=== PATIENT | female | born 1985 | race Caucasian/White ===

== ENCOUNTER 2019-02-02 17:01 | Inpatient (IN) ==
[2019-02-02] MEDS ORDERED: Metoclopramide 10 MG/2 ML VIAL IVP ONE (17:47)
[2019-02-02] MEDS ORDERED: SODIUM CHLORIDE 0.9% IVPB ONE (17:47)
[2019-02-02] MEDS ORDERED: Famotidine 20 MG/2 ML VIAL IVP ONE (17:47)
[2019-02-02] MEDS ORDERED: GENTAMICIN IVPB ONE (17:47)
[2019-02-02] MEDS ORDERED: Clindamycin 900 MG/50 ML 900 MG/50 ML IV.SOLN IVPB ONE (17:47)
[2019-02-02] MEDS ORDERED: Ringers Solution, Lactated 1,000 ML ONE ×2 (17:53→18:51)
--- NOTE | 2019-02-02 17:55 | OB/GYN History & Physical ---
Date of Encounter: 02/02/19 Time of Encounter: 17:55 Assessment and Plan (1) Breech presentation on examination Current visit: Yes Status: Acute Plan for primary low transverse section. Preop antibiotics of clindamycin and gentamicin. Discussed risks, benefits and alternatives to a primary low transverse section for breech presentation of baby A. Questions were answered and consent was signed. Qualifiers: Fetus number: fetus 1 of multiple gestation Qualified Code(s): O32.1XX1 - Maternal care for breech presentation, fetus 1 (2) Dichorionic diamniotic twin in third trimester Current visit: Yes Status: Acute (3) 34 weeks gestation of Current visit: Yes Status: Acute Continuous monitoring and toco. (4) Pre-eclampsia in third trimester Current visit: Yes Status: Acute Monitor blood pressure. Repeat preeclampsia labs. (5) BMI 50.0-59.9, adult Current visit: Yes Status: Chronic History of Present Illness Chief complaint: SROM HPI: Ms. Delgadillo is a 33 year old female 34+2 weeks gestation (by LMP of 06/07/18) who presents to triage with complaints of rupture membranes at 1530. She states that she has been leaking clear/yellow fluid since that time. Patient reports feeling movement and contractions approximately every 3 minutes. care at [facility] by Dr. Becerra. with DI/DI twins, 15% discordant growth noted on last ultrasound in the [facility], 01/25/2016. At last visit was diagnosed with preeclampsia without severe features. She states she underwent an ultrasound in [place], by [facility], on 01/29/2019. This [facility] ultrasound showed that baby A was breech and weighed 4 lbs. 11 oz. while baby B was vertex weighing 3 lbs. 13 oz. She denies vaginal bleeding, abnormal vaginal discharge, dysuria, headache, vision changes, right upper quadrant/epigastric pain, new onset chest pain or shortness of breath or any other obstetrical complaints. 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 First day of last period was 06/07/2018. History of 1 abnormal Pap smear in 2004. This was followed with colposcopy and negative biopsies. She denies a history of STI's. Medications and Allergies Allergy/AdvReac Type Severity Reaction Status Date / Time No Known Allergies Allergy Verified 02/02/19 18:22 Review of System OB All systems PM: reviewed and no additional remarkable complaints except as stated (All other systems are negative outside of the history of present illness.) Exam - Constitutional Constitutional: no acute distress, morbidly obese - HEENT HEENT: Normocephaly, Mucus Membranes Moist - Neck Neck exam: supple - Lungs Respiratory exam: CTAB - Cardiovascular Cardiovascular exam: RRR - Abdomen Abdomen: Present: bowel sounds normal, gravid, non tender (Protuberant) - Extremities Extremities exam: normal inspection - Vagina Vagina: Present: normal moisture (speculum exam with pooling noted, clear fluid. Foot noted in vagina on cervical exam ) - Uterus Uterus exam: Present: enlarged Results Result Diagrams: 02/02/19 17:47 All other labs normal. - VTE Reasons for not Prescribing Prophylaxis: Treatment not Indicated - Low risk for VTE
[2019-02-02] MEDS ORDERED: Ringers Solution, Lactated 1,000 ML IVC SCH (18:00)
[2019-02-02] MEDS ORDERED: *HR* Propofol 200 MG/20 ML VIAL IVP ONE ×2 (18:00→18:01)
[2019-02-02] MEDS ORDERED: Metoclopramide 10 MG/2 ML VIAL IVP STA (18:02)
[2019-02-02] MEDS ORDERED: *HR* Succinylcholine 200 MG/10 ML VIAL IVP ONE (18:02)
[2019-02-02] MEDS ORDERED: Acetaminophen IV 1,000 MG/100 ML INFUS..BTL IVPB STA (18:03)
[2019-02-02] MEDS ORDERED: Famotidine 20 MG/2 ML VIAL IVP STA (18:03)
[2019-02-02] MEDS ORDERED: *HR* Oxytocin 10 UNIT/ML VIAL IM ONE ×2 (18:04→18:51)
[2019-02-02] MEDS ORDERED: Dexamethasone 4 MG/ML VIAL ONE (18:25)
[2019-02-02] MEDS ORDERED: Ondansetron 4 MG/2 ML VIAL ONE (18:25)
[2019-02-02] MEDS ORDERED: *HR* Meperidine 25 MG/ML SYRINGE IVP PRN (18:33)
[2019-02-02] MEDS ORDERED: *HR* HYDROmorphone (PF) 1 MG/ML SYRINGE IVP PRN ×2 (18:33→22:03)
[2019-02-02] MEDS ORDERED: Ondansetron 4 MG/2 ML VIAL IVP PRN ×2 (18:33→22:03)
[2019-02-02 18:40] LABS: Basophils % 0.2 %; Eosinophils # 0.1 K/mcL (0.0-0.6); Eosinophils % 1.7 %; Hematocrit 36.3 % (35.3-44.9); Hemoglobin 12.5 g/dL (11.5-15.4); Immature Granulocytes % 0.4 % (0-4); Lymphocytes # 1.1 K/mcL (0.6-4.6); Lymphocytes % 13.2 %; Mean Corpuscular HGB Conc 34.4 g/dL (31.6-35.5); Mean Corpuscular Hemoglobin 28.9 pg (28.0-33.3); Mean Platelet Volume 11.1 fL (9.4-12.4); Monocytes # 0.6 K/mcL (0.0-1.3); Monocytes % 6.9 %; Neutrophils # 6.5 K/mcL (1.6-8.9); Platelet Count 174 K/mcL (140-400); Red Blood Count 4.32 M/mcL (3.82-4.97); Red Cell Distribution Width 14.1 % (11.5-14.5); Segmented Neutrophils % 77.6 %; White Blood Count 8.4 K/mcL (4.3-11.1)
--- NOTE | 2019-02-02 18:41 | Anesthesia Evaluation PreOp ---
Date of Encounter: 02/02/19 Time of Encounter: 17:55 - Past History Planned Operation: c section, stat Cardiac History: Denies any Significant Hx Pulmonary History: Denies Any Significant HX SOIL TECHNICIAN History: Denies Any Significant HX Other Medical History: GERD Anesthesia History: No Prior Anesthetic Complications, Past Anesthesia (sinus) : Yes Test: Positive Alcohol Use: none Drug use: none Medications and Allergies Allergy/AdvReac Type Severity Reaction Status Date / Time No Known Allergies Allergy Verified 02/02/19 18:22 - Meds/Allergy Pre-op Review Medications Reviewed: Yes Allergies Reviewed: Yes Beta Blockers on Current Med List: No Anesthesia Exam 170 80 74 16 fht 132,143 Height: 5'3" Weight: 141 k NPO (# of Hours): 5 Pain Scale: 2 Pain Scale Used: Numeric (1 - 10) - HEENT Pupil (Motor): Pupils equal Mallampati: II Teeth: Normal Oral Opening: Greater than 3 - SOIL TECHNICIAN LOC: Oriented SOIL TECHNICIAN Motor: Normal RUE, Normal LUE, Normal RLE, Normal LLE, Normal Face SOIL TECHNICIAN Sensory: Normal: RUE, LUE, RLE, LLE, Face - Cardiac Rhythm: Regular Murmur: None - Pulmonary Breath Sounds: bilateral Clear Respiratory Effort: Symmetrical Anesthesia Assess/Plan ASA Score: 3 (MO, BMI 55) Level of consciousness: Cooperative, Anxious Anesthetic Plan: General (risks discussed, questions answered, verbal consent) Autologous Blood: No Monitoring Plan: Standard Monitors Recovery Plan: PACU
[2019-02-02] MEDS ORDERED: *HR* FentaNYL (PF) 100 MCG/2 ML VIAL ONE (18:43)
[2019-02-02] MEDS ORDERED: *HR* HYDROMORPHONE 2 MG/ML VIAL ONE (18:50)
--- NOTE | 2019-02-02 20:23 | OB/GYN Procedure Note ---
Section - Date of procedure: 02/02/19 Preop diagnosis: breech (Baby A), other (1. IUP @ 34.2wga 2. Breech of Twin A 3. Di-Di Twins 4. Pre-eclampsia w/ Severe Features) Post-op diagnosis: same Procedure: section, primary low transverse Surgeon: Barbie Cardoza Blood Loss: 800 Was there an syrup mixer assistant present: Yes Tentmaker: Sherman Joe Anesthesia Type: General Disposition: L&D Recovery Room Specimens: Placenta, Cord blood - (s) A Delivery Date: 02/02/19 Infant Delivery Time: 18:19 Presentation: breech (Double footling) Route of delivery: other () Gender: Female Viability: Viable Pounds: 5 Gram Weight: 2.26 kg at 1 minute: 8 at 5 minutes: 9 Shoulder Dystocia: not encountered Specimens collected: cord blood Placenta: partial extraction B Infant Delivery Date: 02/02/19 Infant Delivery Time: 18:19 Presentation: vertex Route of delivery: other () Gender: Female Viability: Viable Gram Weight: 1.57 kg at 1 minute: 7 at 5 minutes: 9 Shoulder Dystocia: not encountered Specimens collected: cord blood Placenta: partial extraction Cord: delivered through nuchal - Narrative Narrative: Operation Performed Primary Low Transverse Section Indication for Surgery 33yo at 34.2 wga complained of leakage of fluid since 1529. She states that she felt a gush and continued leaking. She was recently diagnosed with preeclampsia without severe features for elevated blood pressures in clinic and her 24-hour urine protein, which resulted on 01/27/2019, had 395 g of protein. She does feel contractions every 3 minutes or so. She states she will underwent an [facility] ultrasound in [place] on Sunday which showed that they be a was breech, measured 4 lbs. 11 oz., and baby B was vertex, measuring 3 lbs. 13 oz. She denies vaginal bleeding, abnormal vaginal discharge, dysuria, headache, vision changes, right upper quadrant/epigastric pain, new onset chest pain or shortness of breath or any other obstetrical complaints. Prior to my assessment the manager support services, Christina Montiel, performed a speculum exam. She noted gross pooling in the vagina and ferning on microscopy. After confirming her history I performed a limited bedside ultrasound which dawna wed baby B on her left side in vertex. Baby A was difficult to fully assess but in breech presentation. Then performed a vaginal exam and palpated feet in the vagina. The decision was made to proceed with a stat section. The patient was informed of the risks and benefits of a section. Risks included but were not limited to bleeding, infection, injury to the presenting part of the fetus, injury to the bladder, bowel, ureters and the surrounding neurovasular bundles. The patient expressed understanding of the risks involved. All questions were answered and the patient consented to the procedure. Preoperative Diagnosis 1. IUP @ 34.2 wga 2. Dichorionic diamnionic twin gestation 3. Breech presentation 4. Preeclampsia without severe features Postoperative Diagnosis Same Surgeon Barbie Lemos D.O. Tentmaker(s) Dr. Sherman Joe Anesthesia General Estimated Blood Loss 800 mL Urine Output 200 mL of clear yellow urine IV Fluids 2,000 mL crystalloid Specimen(s) Placenta and Cord blood Findings Live female infants, Twin A in footling breech presentation & Twin B in vertex presentation, Twin A weighing 5 pounds and 0 ounces, Twin B weighing 3 pounds 7 ounces. Normal appearing uterus, tubes and ovaries bilaterally. Complications None Technique The patient was taken to the operating room where a timeout was performed to confirm correct patient and correct procedure. Preoperative antibiotics were administered. When general anesthesia was found to be adequate, the patient was prepped and draped in the usual sterile fashion for a section, in supine position with a leftward tilt of the hips. A Pfannenstiel skin incision was made with a scalpel. Dissection to the fascia was carried out using blunt and sharp dissection. The fascia was incised with a scalpel and the incision was extended laterally using blunt dissection. The superior edge of the fascia and the underlying rectus muscles were dissected off using blunt dissection. Attention was then turned to the inferior fascial edge and dissection carried out in a similar manner. The rectus muscles were then in the midline and the peritoneum was entered using blunt dissection. The peritoneum was grasped with hemostats at the superior aspect, care was taken to avoid the bladder, and entered using blunt dissection. The peritoneal entry was extended using blunt traction. A bladder blade was inserted, the vesicoperitoneal reflection was identified, and a bladder flap was created using Metzenbaum scissors and blunt dissection. The bladder blade was then replaced to protect the bladder. The lower uterine segment was incised with a scalpel in transverse fashion. The hysterotomy was extended laterally with blunt traction in cephalad and caudad directions. Twin B was in vertex presentation with intact membranes. These were ruptured with an Allis clamp, clear fluid obtained. My hand was placed under the 's head and the delivered through the hysterotomy with the assistance of fundal pressure. The cord was clamped 2 and cut. Twin B was safely transferred to the warmer for further care by the photograph developer. Attention was then turned to twin A. The rump was brought to the hysterotomy, by Dr. Joe, and the remainder of Twin A was delivered in usual fashion for a breech presentation. The cords was clamped x 3 and cut before being transferred off the field to the Forest Aide at the [facility] for further care. Cord blood was obtained for routine testing. The placentas, with three-vessel cords, were expressed intact. The uterus was wiped clean of clots and debris before closing the hysterotomy with a running locked 0 Vicryl suture. A second imbricating layer of the same suture was placed for hemostasis. Excellent hemostasis obtained. The fascia was closed using Stratafix suture in a running nonlocked fashion. The subcutaneous tissue was closed with 3-0 Vicryl suture in a running nonlocked fashion. The skin was closed with a subcuticular stitch of 4-0 Vicryl. The patient tolerated the procedure well. At the end of the procedure, all needle sponge and instrument counts were noted to be correct 2. The patient tolerated the procedure well and was transferred to the recovery room in stable condition. Dr. Joe assisted in retracting tissue to aid in visualization, cut suture, provide fundal pressure and maintain visualization within the operative field by evacuating blood and debris when needed.
[2019-02-02] MEDS ORDERED: Ketorolac 30 MG/ML VIAL IVP ONE (20:31)
[2019-02-02] MEDS ORDERED: Oxytocin 20 units/ LR 1000 mL 20 UNIT/1,000 ML BAG IVC ONE (21:23)
[2019-02-02 21:28] LABS: Alanine Aminotransferase 39 Units/L (7-52); Aspartate Amino Transferase 25 Units/L (13-39); BUN/Creatinine Ratio 22 (6-26); Blood Urea Nitrogen 14 mg/dL (6-20); Lactate Dehydrogenase 188 Units/L (140-271); Uric Acid 6.6 mg/dL (2.3-7.6); eGFR For African Americans > 60 (> 60); eGFR For Non-African Americans > 60 (> 60)
[2019-02-02] MEDS ORDERED: Naloxone 0.4 MG/ML INJ IVP PRN (22:03)
[2019-02-02] MEDS ORDERED: Simethicone 80 MG TAB.CHEW PO PRN (22:03)
[2019-02-02] MEDS ORDERED: Metoclopramide 10 MG/2 ML VIAL IVP PRN (22:03)
[2019-02-02] MEDS ORDERED: Sennosides 8.6 MG TABLET PO PRN (22:03)
[2019-02-02] MEDS ORDERED: Acetaminophen 325 MG TABLET PO PRN (22:03)
[2019-02-02] MEDS ORDERED: Morphine PCA 30 MG/ 30 ML 30 ML PCA.VIAL IVC PRN (22:03)
[2019-02-02] MEDS ORDERED: Oxytocin 20 units/ LR 1000 mL 20 UNIT/1,000 ML BAG IVC SCH (22:03)
--- NOTE | 2019-02-02 22:31 | Anesthesia Evaluation Post Op ---
Date of Encounter: 02/02/19 Time of Encounter: 22:30 - Lungs Lungs: Clear Ascult./Percussion - Airway Airway: Non-obstructed - Cardiovascular Regular Rate - Mental Status Mental Status: Alert & Oriented, Answers Appropriately - Pain Pain Scale: 4 Pain Scale used: Numeric (1 - 10) - Nausea Vomiting Nausea Vomiting: Not Present - Hydration Hydration: NPO, Elias catheter - Discharge PostOp Status: Transfer Patient to floor (VSS, no anesthetic complications)
[2019-02-03] MEDS: *HR* OxyCODONE/APAP 5/325 TABLET PO PRN ×5 (01:00→20:46)
[2019-02-03 01:01] LABS: Bilirubin,Urine Negative (Negative); Blood,Urine Moderate (Negative); Clarity,Urine Turbid (Clear); Color,Urine Dark Yellow (Yellow); Glucose,Urine (UA) 100 mg/dL (Normal); Ketones,Urine Negative (Negative); Leukocyte Esterase,Urine Negative (Negative); Nitrite,Urine Negative (Negative); Protein,Urine 100 mg/dL (Neg-Trace); Specific Gravity,Urine > 1.030 (1.010-1.025); Urobilinogen,Urine Normal (Normal)
[2019-02-03 01:03] LABS: Bacteria,Urine None Seen per hpf (None-Few); Squamous Epithelial Cell,Urine Many per lpf (None-Few); WBC,Urine 15-30 per hpf (0-3)
[2019-02-03 01:12] LABS: Amphetamine Screen,Urine Negative ng/mL (Cutoff=1000); Barbiturate Screen,Urine Negative ng/mL (Cutoff=200); Benzodiazepines Screen,Urine Negative ng/mL (Cutoff=200); Cannabinoid Screen,Urine Negative ng/mL (Cutoff = 50); Cocaine Screen,Urine Negative ng/mL (Cutoff= 300); Opiate Screen,Urine Positive ng/mL (Cutoff=300); Phencyclidine Screen,Urine Negative ng/mL (Cutoff=25)
[2019-02-03 01:24] LABS: Protein/Creatinine Ratio,Urine 1.68 mg/mg (0.00-0.20)
[2019-02-03] MEDS ORDERED: Ketorolac 30 MG/ML VIAL IVP SCH (03:00)
[2019-02-03 05:38] LABS: Basophils % 0.2 %; Hematocrit 28.4 % (35.3-44.9); Immature Granulocytes % 0.4 % (0-4); Lymphocytes # 1.1 K/mcL (0.6-4.6); Lymphocytes % 9.2 %; Mean Corpuscular HGB Conc 34.2 g/dL (31.6-35.5); Mean Corpuscular Hemoglobin 29.1 pg (28.0-33.3); Mean Corpuscular Volume 85.3 fL (83.0-100.0); Monocytes # 0.6 K/mcL (0.0-1.3); Monocytes % 5.6 %; Neutrophils # 9.7 K/mcL (1.6-8.9); Platelet Count 154 K/mcL (140-400); Red Blood Count 3.33 M/mcL (3.82-4.97); Segmented Neutrophils % 84.6 %; White Blood Count 11.5 K/mcL (4.3-11.1)
[2019-02-03 05:41] LABS: Hemoglobin 9.7 g/dL (11.5-15.4)
--- NOTE | 2019-02-03 10:07 | OB/GYN Progress Note ---
Date of Encounter: 02/03/19 Time of Encounter: 10:05 - Assessment and Plan (1) Status post delivery Current Visit: Yes Status: Acute Patient meeting day one milestones. Pain well-controlled with prescribed medications. Voiding without difficulty, tolerating regular diet, bleeding light-moderate. No bowel movement yet. Anticipate discharge tomorrow (2) Breast feeding status of mother Current Visit: Yes Status: Acute support as needed. Patient states she already has a breast pump at home. (3) Acute blood loss as cause of postoperative anemia Current Visit: Yes Status: Acute Increase iron to twice daily. Patient is asymptomatic and vital signs are stable. Subjective - Subjective Principal diagnosis: Status post section Interval history: Date of procedure: 02/02/19 Preop diagnosis: breech (Baby A), other (1. IUP @ 34.2wga 2. Breech of Twin A 3. Di-Di Twins 4. Pre-eclampsia w/ Severe Features) Post-op diagnosis: same Procedure: section, primary low transverse Surgeon: Barbie Cardoza Blood Loss: 800 Was there an machine assistant present: Yes Survey Questionnaire Designer: Sherman Joe Anesthesia Type: General Disposition: L&D Recovery Room Specimens: Placenta, Cord blood - (s) A Infant Delivery Date: 02/02/19 Delivery Time: 18:19 Presentation: breech (Double footling) Route of delivery: other () Gender: Female Viability: Viable Pounds: 5 Gram Weight: 2.26 kg at 1 minute: 8 at 5 minutes: 9 Shoulder Dystocia: not encountered Specimens collected: cord blood Placenta: partial extraction Infant B Infant Delivery Date: 02/02/19 Infant Delivery Time: 18:19 Presentation: vertex Route of delivery: other () Gender: Female Viability: Viable Gram Weight: 1.57 kg at 1 minute: 7 at 5 minutes: 9 Shoulder Dystocia: not encountered Specimens collected: cord blood Placenta: partial extraction Cord: delivered through nuchal - Narrative Narrative: Operation Performed Primary Low Transverse Section Indication for Surgery 33yo at 34.2 wga complained of leakage of fluid since 1529. She states th at she felt a gush and continued leaking. She was recently diagnosed with preeclampsia without severe features for elevated blood pressures in clinic and her 24-hour urine protein, which resulted on 01/27/2019, had 395 g of protein. She does feel contractions every 3 minutes or so. She states she will underwent an [facility] ultrasound in [place] on Sunday which showed that they be a was breech, measured 4 lbs. 11 oz., and baby B was vertex, measuring 3 lbs. 13 oz. She denies vaginal bleeding, abnormal vaginal discharge, dysuria, headache, vision changes, right upper quadrant/epigastric pain, new onset chest pain or shortness of breath or any other obstetrical complaints. Prior to my assessment the water filterer helper, Christina Montiel, performed a speculum exam. She noted gross pooling in the vagina and ferning on microscopy. After confirming her history I performed a limited bedside ultrasound which showed baby B on her left side in vertex. Baby A was difficult to fully assess but in breech presentation. Then performed a vaginal exam and palpated feet in the vagina. The decision was made to proceed with a stat section. The patient was informed of the risks and benefits of a section. Risks included but were not limited to bleeding, infection, injury to the presenting part of the fetus, injury to the bladder, bowel, ureters and the surrounding neurovasular bundles. The patient expressed understanding of the risks involved. All questions were answered and the patient consented to the procedure. Preoperative Diagnosis 1. IUP @ 34.2 wga 2. Dichorionic diamnionic twin gestation 3. Breech presentation 4. Preeclampsia without severe features Postoperative Diagnosis Same Surgeon Barbie Lemos D.O. Survey Questionnaire Designer(s) Dr. Sherman Joe Anesthesia General Estimated Blood Loss 800 mL Urine Output 200 mL of clear yellow urine IV Fluids 2,000 mL crystalloid Specimen(s) Placenta and Cord blood Findings Live female infants, Twin A in footling breech presentation & Twin B in vertex presentation, Twin A weighing 5 pounds and 0 ounces, Twin B weighing 3 pounds 7 ounces. Normal appearing uterus, tubes and ovaries bilaterally. Complications None Technique The patient was taken to the operating room where a timeout was performed to confirm correct patient and correct procedure. Preoperative antibiotics were administered. When general anesthesia was found to be adequate, the patient was prepped and draped in the usual sterile fashion for a section, in supine position with a leftward tilt of the hips. A Pfannenstiel skin incision was made with a scalpel. Dissection to the fascia was carried out using blunt and sharp dissection. The fascia was incised with a scalpel and the incision was extended laterally using blunt dissection. The superior edge of the fascia and the underlying rectus muscles were dissected off using blunt dissection. Attention was then turned to the inferior fascial edge and dissection carried out in a similar manner. The rectus muscles were then in the midline and the peritoneum was entered using blunt dissection. The peritoneum was grasped with hemostats at the superior aspect, care was taken to avoid the bladder, and entered using blunt dissection. The peritoneal entry was extended using blunt traction. A bladder blade was inserted, the vesicoperitoneal reflection was identified, and a bladder flap was created using Metzenbaum scissors and blunt dissection. The bladder blade was then replaced to protect the bladder. The lower uterine segment was incised with a scalpel in transverse fashion. The hysterotomy was extended laterally with blunt traction in cephalad and caudad directions. Twin B was in vertex presentation with intact membranes. These were ruptured with an Allis clamp, clear fluid obtained. My hand was placed under the 's head and the infant delivered through the hysterotomy with the assistance of fundal pressure. The cord was clamped 2 and cut. Twin B was safely transferred to the warmer for further care by the stallion keeper. Attention was then turned to twin A. The rump was brought to the hysterotomy, by Dr. Joe, and the remainder of Twin A was delivered in usual fashion for a breech presentation. The cords was clamped x 3 and cut before being transferred off the field to the Assistant Food Service Manager at the [facility] for further care. Cord blood was obtained for routine testing. The placentas, with three-vessel cords, were expressed intact. The uterus was wiped clean of clots and debris before closing the hysterotomy with a running locked 0 Vicryl suture. A second imbricating layer of the same suture was placed for hemostasis. Excellent hemostasis obtained. The fascia was closed using Stratafix suture in a running nonlocked fashion. The subcutaneous tissue was closed with 3-0 Vicryl suture in a running nonlocked fashion. The skin was closed with a subcuticular stitch of 4-0 Vicryl. The patient tolerated the procedure well. At the end of the procedure, all needle sponge and instrument counts were noted to be correct 2. The patient tolerated the procedure well and was transferred to the recovery room in stable condition. Dr. Joe assisted in retracting tissue to aid in visualization, cut suture, provide fundal pressure and maintain visualization within the operative field by evacuating blood and debris when needed. Patient reports: appetite normal, voiding normally, pain well controlled, ambulating normally [place]: doing well, nursing well Objective - Vital Signs Latest vital signs: Vital Signs Temp Pulse Resp BP Pulse Ox 02/03/19 08:43 98.4 F 72 18 141/84 98 02/03/19 04:45 97.5 F L 67 18 129/84 99 02/03/19 00:45 97.6 F 70 14 146/90 97 02/02/19 23:45 98.1 F 63 14 151/82 97 02/02/19 22:45 97.9 F 68 14 146/77 97 02/02/19 22:15 97.6 F 61 18 146/77 97 02/02/19 21:45 97.7 F 61 14 139/87 95 Intake and Output 02/02/19 02/03/19 02/03/19 23:59 07:59 15:59 Intake Total 1600 / 2400 800 / 2400 Output Total 350 / 350 395 / 395 Balance -350 / -350 1205 / 2004 / 2004 Intake: Oral 1600 / 2400 800 / 2400 Output: Catheter 350 / 350 395 / 395 Other: Weight 141.903 kg - Exam Lungs: bilateral: normal Chest: Normal S1, Normal S2 Extremities: Present: edema Abdomen: Present: normal appearance, soft, tenderness. Absent: distention Incision: Present: normal, dry, dressed (MARA) Uterus: Present: normal, firm Fundal Height: 0 (@U) - Labs Labs: Laboratory Results - last 24 hr 02/02/19 02/02/19 02/03/19 17:30 17:47 00:45 WBC 8.4 RBC 4.32 Hgb 12.5 Hct 36.3 MCV 84.0 MCH 28.9 MCHC 34.4 RDW 14.1 Plt Count 174 MPV 11.1 Immature Gran % 0.4 Seg Neutrophils % 77.6 Lymphocytes % 13.2 Monocytes % 6.9 Eosinophils % 1.7 Basophils % 0.2 Neutrophils # 6.5 Lymphocytes # 1.1 Monocytes # 0.6 Eosinophils # 0.1 Basophils # 0.0 BUN 14 Creatinine 0.65 Est GFR ( Amer) > 60 Est GFR (Non-Af Amer) > 60 BUN/Creatinine Ratio 22 Uric Acid 6.6 AST 25 ALT 39 Lactate Dehydrogenase 188 Urine Color Urine Clarity Urine pH Ur Specific [place] Urine Protein Urine Glucose (UA) Urine Ketones Urine Blood Urine Nitrite Urine Bilirubin Urine Urobilinogen Ur Leukocyte Esterase Urine Microscopic RBC Urine Microscopic WBC Ur Squamous Epith Cells Urine Bacteria Urine Creatinine Protein/Creatinin Ratio Urine Total Protein Urine Opiates Screen Positive H Ur Buprenorphine Scrn Negative Ur Barbiturates Screen Negative Ur Phencyclidine Scrn Negative Ur Amphetamines Screen Negative U Benzodiazepines Scrn Negative Urine Cocaine Screen Negative U Marijuana (THC) Screen Negative Ur Drug Screen Interp See Below 02/03/19 02/03/19 02/03/19 00:45 00:45 05:18 WBC 11.5 H RBC 3.33 L Hgb 9.7 L D Hct 28.4 L MCV 85.3 MCH 29.1 MCHC 34.2 RDW 14.0 Plt Count 154 MPV 11.0 Immature Gran % 0.4 Seg Neutrophils % 84.6 Lymphocytes % 9.2 Monocytes % 5.6 Eosinophils % 0.0 Basophils % 0.2 Neutrophils # 9.7 H Lymphocytes # 1.1 Monocytes # 0.6 Eosinophils # 0.0 Basophils # 0.0 BUN Creatinine Est GFR ( Amer) Est GFR (Non-Af Amer) BUN/Creatinine Ratio Uric Acid AST ALT Lactate Dehydrogenase Urine Color Dark Yellow Urine Clarity Turbid A Urine pH 6.0 Ur Specific [place] > 1.030 H Urine Protein 100 H Urine Glucose (UA) 100 H Urine Ketones Negative Urine Blood Moderate H Urine Nitrite Negative Urine Bilirubin Negative Urine Urobilinogen Normal Ur Leukocyte Esterase Negative Urine Microscopic RBC 5-15 H Urine Microscopic WBC 15-30 H Ur Squamous Epith Cells Many H Urine Bacteria None Seen Urine Creatinine 177 Protein/Creatinin Ratio 1.68 H Urine Total Protein 297 H Urine Opiates Screen Ur Buprenorphine Scrn Ur Barbiturates Screen Ur Phencyclidine Scrn Ur Amphetamines Screen U Benzodiazepines Scrn Urine Cocaine Screen U Marijuana (THC) Screen Ur Drug Screen Interp
[2019-02-03] MEDS: Prenatal Vit/FA 1 EACH TABLET PO SCH (10:18)
[2019-02-03] MEDS: Ibuprofen 600 MG TABLET PO PRN ×2 (15:36→21:49)
[2019-02-04] MEDS: *HR* OxyCODONE/APAP 5/325 TABLET PO PRN ×3 (00:47→20:22)
[2019-02-04] MEDS: Ibuprofen 600 MG TABLET PO PRN ×3 (05:29→20:20)
[2019-02-04] MEDS: Prenatal Vit/FA 1 EACH TABLET PO SCH (08:48)
--- NOTE | 2019-02-04 11:26 | OB/GYN Progress Note ---
Date of Encounter: 02/04/19 Time of Encounter: 11:23 - Assessment and Plan (1) Status post delivery Current Visit: Yes Status: Acute Maintain dressing and abdominal binder. Pain medication as needed. Diet as tolerated. Ambulation as tolerated. Continue breast pumping. Anticipate discharge POD#3. (2) Breast feeding status of mother Current Visit: Yes Status: Acute Continue breast pumping. support as needed. Subjective - Subjective Interval history: 33 y/o female POD#2 with pain well-managed but some overall achiness. Passing flatus and tolerating diet well. Lochia amount is decreased from yesterday. Ambulating well but legs feel tight with edema. No c/o nipple soreness with breast pumping. Patient reports: appetite normal, voiding normally, pain well controlled, ambulating normally [place]: in NICU (34 week twin girls), other (breast pumping milk for babies) Objective - Vital Signs Latest vital signs: Vital Signs Temp Pulse Resp BP Pulse Ox 02/04/19 07:53 98.3 F 82 16 138/81 02/03/19 17:15 97.9 F 80 12 123/78 100 02/03/19 13:08 97.8 F 72 12 135/82 97 Intake and Output 02/03/19 02/04/19 02/04/19 23:59 07:59 15:59 Intake Total 350 / 3650 600 / 840 240 / 840 Output Total 900 / 900 Balance 350 / -345 -300 / -60 240 / -60 Intake: Oral 350 / 3650 600 / 840 240 / 840 Output: Urine 900 / 900 Other: Meal Dinner Breakfast Percent of Meal Consumed 100% 100% # Voids 1 Weight 135.1 kg 133.101 kg Patient Weight 02/04/19 23:59 Weight 133.101 kg - Exam Lungs: bilateral: normal Chest: Normal S1, Normal S2 Extremities: Present: edema (+3 nonpitting) Abdomen: Present: normal appearance, soft (bowel sounds x 4 quadrants) Incision: Present: dry, intact, dressed Uterus: Present: firm Fundal Height: 2 (U/-2)
[2019-02-05] MEDS: Ibuprofen 600 MG TABLET PO PRN ×2 (03:03→10:25)
[2019-02-05] MEDS: *HR* OxyCODONE/APAP 5/325 TABLET PO PRN ×2 (03:04→10:26)
[2019-02-05 08:34] VITALS: BP 135/79
--- NOTE | 2019-02-05 10:15 | Discharge Summary ---
Date of Encounter: 02/05/19 Time of Encounter: 10:11 - Discharge Diagnosis (1) Status post delivery Priority: Primary Status: Acute Comments: Continue routine care discharge home today follow up with Dr. Joe in 2 weeks (2) Breast feeding status of mother Priority: Secondary Status: Acute Comments: support prn - Discharge Medications Prescriptions: New Docusate [Colace] 100 mg PO BID #30 capsule Ibuprofen [Motrin] 600 mg PO Q6HR PRN #60 tablet PRN Reason: Cramping OxyCODONE/APAP 5/325 [Percocet 5/325 MG] 1 each PO Q6HR PRN 5 Days #20 tablet PRN Reason: Breakthrough Pain Home Medications: Docusate [Colace] 100 mg PO BID #30 capsule 02/05/19 [Rx] Ibuprofen [Motrin] 600 mg PO Q6HR PRN #60 tablet 02/05/19 [Rx] OxyCODONE/APAP 5/325 [Percocet 5/325 MG] 1 each PO Q6HR PRN 5 Days #20 tablet 02/05/19 [Rx] Allergies/Adverse Reactions: Allergy/AdvReac Type Severity Reaction Status Date / Time No Known Allergies Allergy Verified 02/02/19 18:22 Data Procedures and tests throughout hospitalization: Laboratory Tests 02/02/19 02/02/19 02/03/19 17:30 17:47 00:45 WBC 8.4 RBC 4.32 Hgb 12.5 Hct 36.3 MCV 84.0 MCH 28.9 MCHC 34.4 RDW 14.1 Plt Count 174 MPV 11.1 Immature Gran % 0.4 Seg Neutrophils % 77.6 Lymphocytes % 13.2 Monocytes % 6.9 Eosinophils % 1.7 Basophils % 0.2 Neutrophils # 6.5 Lymphocytes # 1.1 Monocytes # 0.6 Eosinophils # 0.1 Basophils # 0.0 BUN 14 Creatinine 0.65 Est GFR ( Amer) > 60 Est GFR (Non-Af Amer) > 60 BUN/Creatinine Ratio 22 Uric Acid 6.6 AST 25 ALT 39 Lactate Dehydrogenase 188 Urine Color Urine Clarity Urine pH Ur Specific [place] Urine Protein Urine Glucose (UA) Urine Ketones Urine Blood Urine Nitrite Urine Bilirubin Urine Urobilinogen Ur Leukocyte Esterase Urine Microscopic RBC Urine Microscopic WBC Ur Squamous Epith Cells Urine Bacteria Urine Creatinine Protein/Creatinin Ratio Urine Total Protein Urine Opiates Screen Positive H Ur Buprenorphine Scrn Negative Ur Barbiturates Screen Negative Ur Phencyclidine Scrn Negative Ur Amphetamines Screen Negative U Benzodiazepines Scrn Negative Urine Cocaine Screen Negative U Marijuana (THC) Screen Negative Ur Drug Screen Interp See Below 02/03/19 02/03/19 02/03/19 00:45 00:45 05:18 WBC 11.5 H RBC 3.33 L Hgb 9.7 L D Hct 28.4 L MCV 85.3 MCH 29.1 MCHC 34.2 RDW 14.0 Plt Count 154 MPV 11.0 Immature Gran % 0.4 Seg Neutrophils % 84.6 Lymphocytes % 9.2 Monocytes % 5.6 Eosinophils % 0.0 Basophils % 0.2 Neutrophils # 9.7 H Lymphocytes # 1.1 Monocytes # 0.6 Eosinophils # 0.0 Basophils # 0.0 BUN Creatinine Est GFR ( Amer) Est GFR (Non-Af Amer) BUN/Creatinine Ratio Uric Acid AST ALT Lactate Dehydrogenase Urine Color Dark Yellow Urine Clarity Turbid A Urine pH 6.0 Ur Specific [place] > 1.030 H Urine Protein 100 H Urine Glucose (UA) 100 H Urine Ketones Negative Urine Blood Moderate H Urine Nitrite Negative Urine Bilirubin Negative Urine Urobilinogen Normal Ur Leukocyte Esterase Negative Urine Microscopic RBC 5-15 H Urine Microscopic WBC 15-30 H Ur Squamous Epith Cells Many H Urine Bacteria None Seen Urine Creatinine 177 Protein/Creatinin Ratio 1.68 H Urine Total Protein 297 H Urine Opiates Screen Ur Buprenorphine Scrn Ur Barbiturates Screen Ur Phencyclidine Scrn Ur Amphetamines Screen U Benzodiazepines Scrn Urine Cocaine Screen U Marijuana (THC) Screen Ur Drug Screen Interp Date of admission: 02/02/19 17:01 Primary care physician: PCP NONE Discharging clinician: Marva Tenorio Anticipated date of discharge: 02/05/19 - Patient Status Disposition: Home, Self-Care Condition: Good - Discharge Instructions Follow Up With: NONE,PCP [Primary Care Provider] - Sherman Joe MD [Partnered Physician] - - Diet and Activity Activity: increase activity as tolerated Diet: regular diet Hospital Course Procedures: OARRs report reviewed by SOLEDAD Santos prior to discharge Reason for admission: active labor Delivery: section (footling breech) Episiotomy: none Laceration: none Other procedures: none complications: none Discharge diagnosis: delivery (twins) [place] baby: twins (female x2) Time Attestation: Total time spent providing and/or coordinating discharge services: Time Spent: Less than 30 minutes - VTE Reasons for not Prescribing Prophylaxis: Treatment not Indicated - Low risk for VTE Documentation of Mechanical Device: Intermittent pneumatic compression device Exam - Constitutional Vitals: Temp Pulse Resp BP Pulse Ox 98.6 F 75 16 135/79 95 02/05/19 08:33 02/05/19 08:33 02/05/19 08:33 02/05/19 08:02/05/19 08:33 General appearance IM: A&O X 3, pleasant, answers questions appropriately - Respiratory Respiratory exam: Present: CTAB - Cardiovascular Cardiovascular exam IM: Present: RRR, +S1, +S2 - GI/Abdominal GI/Abdominal exam IM: normal bowel sounds - Uterine Tone: Firm Uterus Position: 2 Fingers Below Umbilicus, Midline - Extremities Exam Extremities exam IM: Present: calf tenderness, full ROM, pedal edema (2+ bilateral feet) - Neurological Exam Neurological exam: reflexes normal
[2019-02-05] MEDS: Prenatal Vit/FA 1 EACH TABLET PO SCH (10:26)
== END 2019-02-05 13:05 | disposition home or self-care (01) | DRG 786 ==
LOC: 1NENULAB → OBSVTOIN 17:01 → 1NENUOBS 22:09
PROVIDERS: ADMIT Obstetrics & Gynecology; ATTEND Obstetrics & Gynecology